=== PATIENT | female | born 1960 | race Two or more races ===

== ENCOUNTER 2021-06-08 11:36 | Inpatient (IN) | payer MEDICAID, OTHER ==
[~2021-06-08] VITALS: Ht 167.6 cm; Wt 80.6 kg
[2021-06-08 13:22] LABS: Basophils # (auto) 0.1 10 ^3/uL (0-0.2); Basophils % (auto) 0.8 % (0.0-2.0); Eosinophils # (auto) 0.2 10 ^3/uL (0-0.8); Eosinophils % (auto) 4.1 % (0.0-7.0); Hematocrit 32.2 % (36.0-46.0); Lymphocytes # (auto) 0.9 10 ^3/uL (0.4-5.4); Lymphocytes % (auto) 15.4 % (10.0-50.0); Mean Corpuscular Hgb Conc. 34.1 g/dL (32.0-36.0); Monocytes # (auto) 0.5 10 ^3/uL (0-1.3); Monocytes % (auto) 8.1 % (0.0-12.0); Neutrophils # (auto) 4.3 10 ^3/uL (1.6-8.6); Neutrophils % (auto) 71.6 % (37.0-80.0); Red Blood Cells 3.79 10^6/uL (4.0-5.20); Red Cell Distribution Width 14.4 % (11.8-14.3)
[2021-06-08 13:38] LABS: INR 1.03 (0.9-1.15)
[2021-06-08] MEDS ORDERED: HEPARIN DRIP/D5W 100UNITS/ML 250 ML IV SCH (13:45)
[2021-06-08] MEDS ORDERED: HEPARIN SODIUM (PORCINE) 5000 UNITS/ML 1ML VIAL IV ONE (13:45)
[2021-06-08 14:10] LABS: Calcium 9.3 mg/dL (8.5-10.1)
[2021-06-08 14:13] LABS: BUN/Creatinine Ratio 19.7; Bilirubin, Total 0.3 mg/dL (0.2-1.0); Total Protein 7.6 g/dL (6.4-8.2)
[2021-06-08] MEDS ORDERED: IOHEXOL 350 MG/ML 100ML IJ ONE ×2 (14:28→15:01)
[2021-06-08] MEDS: HEPARIN DRIP/D5W 100UNITS/ML 250 ML IV SCH (21:00)
[2021-06-08] MEDS ORDERED: MORPHINE SULFATE INJECTION 2 MG/ML SYRG IV PRN (22:00)
[2021-06-08] MEDS ORDERED: ACETAMINOPHEN 325 MG TAB PO PRN (22:00)
[2021-06-08] MEDS ORDERED: cloNIDine HCL 0.1 MG TAB PO PRN (22:00)
[2021-06-08] MEDS ORDERED: NITROGLYCERIN 0.4 MG SL TAB SL PRN (22:00)
[2021-06-08] MEDS ORDERED: ONDANSETRON HCL 4 MG/2 ML VIAL IV PRN (22:00)
[2021-06-08] MEDS ORDERED: TEMAZEPAM 15 MG CAP PO PRN (22:00)
[2021-06-08] MEDS: ATORVASTATIN 20 MG TAB PO SCH (22:18)
[2021-06-08] MEDS ORDERED: CLOPIDOGREL BISULFATE 75 MG TAB PO ONE (22:45)
[2021-06-08] MEDS: HYDROcodone-ACET 5/325MG TAB PO PRN (23:40)
[2021-06-08 23:43] LABS: INR 1.06 (0.9-1.15)
[2021-06-08 23:48] LABS: Partial Thromboplastin Time 88.3 sec (23.6-33.0)
[2021-06-09] VITALS (7 sets, daily range): BP systolic 109–170; BP diastolic 51–82
[2021-06-09] MEDS ORDERED: PNEUMOCOCCAL VACC POLYS 25 MCG/0.5 ML VIAL IM ONE (01:45)
[2021-06-09 05:58] LABS: Basophils # (auto) 0 10 ^3/uL (0-0.2); Basophils % (auto) 0.7 % (0.0-2.0); Eosinophils # (auto) 0.2 10 ^3/uL (0-0.8); Eosinophils % (auto) 4.7 % (0.0-7.0); Hematocrit 29.6 % (36.0-46.0); Hemoglobin 10.4 g/dL (12.2-16.2); Lymphocytes # (auto) 0.8 10 ^3/uL (0.4-5.4); Lymphocytes % (auto) 16.6 % (10.0-50.0); Mean Corpuscular Hemoglobin 29.7 pg (28.0-32.0); Mean Corpuscular Volume 84.8 fL (80.0-100.0); Monocytes # (auto) 0.5 10 ^3/uL (0-1.3); Monocytes % (auto) 10.1 % (0.0-12.0); Neutrophils # (auto) 3.2 10 ^3/uL (1.6-8.6); Neutrophils % (auto) 67.9 % (37.0-80.0); Nucleated Red Blood Cells % 0.1 %; Red Blood Cells 3.49 10^6/uL (4.0-5.20); Red Cell Distribution Width 14.3 % (11.8-14.3); White Blood Cell 4.8 10^3/uL (4.4-10.8)
[2021-06-09 06:03] LABS: INR 1.08 (0.9-1.15); Partial Thromboplastin Time 69.1 sec (23.6-33.0)
[2021-06-09 06:09] LABS: Albumin 2.7 g/dL (3.4-5.0); Calcium 8.8 mg/dL (8.5-10.1); Potassium 3.3 mmol/L (3.5-5.1)
[2021-06-09 06:13] LABS: BUN/Creatinine Ratio 18.9; Bilirubin, Total 0.6 mg/dL (0.2-1.0); Total Protein 6.8 g/dL (6.4-8.2)
[2021-06-09] MEDS: PANTOPRAZOLE 40 MG TAB PO SCH (09:22)
[2021-06-09] MEDS: LISINOPRIL 20 MG TAB PO SCH (09:23)
[2021-06-09] MEDS: HEPARIN DRIP/D5W 100UNITS/ML 250 ML IV SCH ×2 (09:53→10:13)
[2021-06-09 12:53] LABS: INR 1.09 (0.9-1.15); Partial Thromboplastin Time 39.3 sec (23.6-33.0)
[2021-06-09] MEDS: HYDROcodone-ACET 5/325MG TAB PO PRN (13:00)
[2021-06-09 19:34] LABS: INR 1.07 (0.9-1.15)
[2021-06-09 19:37] LABS: Partial Thromboplastin Time 72.6 sec (23.6-33.0)
[2021-06-09] MEDS: ATORVASTATIN 20 MG TAB PO SCH (22:13)
[2021-06-10 01:33] LABS: INR 1.1 (0.9-1.15)
[2021-06-10 01:40] LABS: Partial Thromboplastin Time 106.8 sec (23.6-33.0)
[2021-06-10] MEDS: HEPARIN DRIP/D5W 100UNITS/ML 250 ML IV SCH (04:07)
[2021-06-10 05:14] VITALS: BP 131/75
[2021-06-10 07:50] VITALS: BP 142/87
[2021-06-10 08:00] VITALS: BP 142/87
[2021-06-10 09:05] LABS: INR 1.08 (0.9-1.15)
[2021-06-10 09:12] LABS: Partial Thromboplastin Time 75.3 sec (23.6-33.0)
[2021-06-10] MEDS: LISINOPRIL 20 MG TAB PO SCH (10:35)
[2021-06-10] MEDS: PANTOPRAZOLE 40 MG TAB PO SCH (10:35)
[2021-06-10 12:35] VITALS: BP 125/64
[2021-06-10] MEDS ORDERED: IOHEXOL 300 MG/ML 100ML BOTTLE IJ ONE (14:11)
[2021-06-10] MEDS ORDERED: IOHEXOL 350 MG/ML 100ML IJ ONE (14:20)
[2021-06-10 14:33] LABS: INR 1.08 (0.9-1.15); Partial Thromboplastin Time 69.3 sec (23.6-33.0)
[2021-06-10 17:06] VITALS: BP 132/67
[2021-06-10 20:08] LABS: INR 1.1 (0.9-1.15)
[2021-06-10 20:21] LABS: Partial Thromboplastin Time 83.1 sec (23.6-33.0)
[2021-06-10] MEDS ORDERED: HEPARIN DRIP/D5W 100UNITS/ML 250 ML IV SCH (21:15)
[2021-06-10 22:00] VITALS: BP 137/69
[2021-06-10] MEDS: ATORVASTATIN 20 MG TAB PO SCH (22:13)
[2021-06-11 03:07] LABS: INR 1.08 (0.9-1.15)
[2021-06-11 03:25] LABS: Partial Thromboplastin Time 86.5 sec (23.6-33.0)
[2021-06-11 05:00] VITALS: BP 131/62
[2021-06-11] MEDS ORDERED: APIX5TAB PO ×2 (08:59)
[2021-06-11 09:00] VITALS: BP 124/56
[2021-06-11] MEDS: PANTOPRAZOLE 40 MG TAB PO SCH (09:02)
[2021-06-11] MEDS: LISINOPRIL 20 MG TAB PO SCH (09:02)
[2021-06-11 09:52] VITALS: BP 124/56
[2021-06-11 09:54] LABS: INR 1.06 (0.9-1.15); Partial Thromboplastin Time 54.7 sec (23.6-33.0)
[2021-06-11] MEDS ORDERED: APIXABAN 5 MG TAB PO SCH (10:00)
== END 2021-06-11 12:05 | disposition home or self-care (01) | DRG 197 ==
LOC: ER 11:36 → TELE 21:54 → TELE-CENTR 23:03
PROVIDERS: ADMIT Nurse Practitioner; ATTEND Family Medicine
DX: I82.422 Acute embolism and thrombosis of left iliac vein (principal); D68.59 Other primary thrombophilia; E27.8 Other specified disorders of adrenal gland; D64.9 Anemia, unspecified; E04.1 Nontoxic single thyroid nodule; E78.00 Pure hypercholesterolemia, unspecified; E78.5 Hyperlipidemia, unspecified; E87.6 Hypokalemia; I10 Essential (primary) hypertension; R59.0 Localized enlarged lymph nodes; R91.1 Solitary pulmonary nodule; Z20.822 Contact with and (suspected) exposure to COVID-19; Z28.21 Immunization not carried out because of patient refusal
CPT/HCPCS: 36415; 71045; 71275; 74177; 80053; 83880; 84439; 84443; 84484; 85025; 85610; 85730; 86850; 86900; 86901; 93005; 93971; 96365; 96376; G0378

== ENCOUNTER 2021-06-24 11:22 | Emergency (ER) | payer MEDICAID ==
[~2021-06-24] VITALS: Ht 167.6 cm; Wt 79.4 kg
[~2021-06-24 11:22] MED LIST: APIX5TAB PO
[2021-06-24 12:17] LABS: Basophils # (auto) 0.1 10 ^3/uL (0-0.2); Eosinophils # (auto) 0.1 10 ^3/uL (0-0.8); Lymphocytes # (auto) 0.7 10 ^3/uL (0.4-5.4); Monocytes # (auto) 0.7 10 ^3/uL (0-1.3)
[2021-06-24 12:18] LABS: Eosinophils % (auto) 0.7 % (0.0-7.0); Hematocrit 30.7 % (36.0-46.0); Lymphocytes % (auto) 7.8 % (10.0-50.0); Mean Corpuscular Hemoglobin 27.8 pg (28.0-32.0); Mean Corpuscular Hgb Conc. 33.3 g/dL (32.0-36.0); Mean Corpuscular Volume 83.5 fL (80.0-100.0); Monocytes % (auto) 8.2 % (0.0-12.0); Neutrophils % (auto) 82.3 % (37.0-80.0); Red Blood Cells 3.68 10^6/uL (4.0-5.20); Red Cell Distribution Width 14.6 % (11.8-14.3); White Blood Cell 8.4 10^3/uL (4.4-10.8)
[2021-06-24 12:22] LABS: Hemoglobin 10.2 g/dL (12.2-16.2)
[2021-06-24 12:31] LABS: INR 1.12 (0.9-1.15); Partial Thromboplastin Time 33.9 sec (23.6-33.0)
[2021-06-24 12:33] LABS: Albumin 2.6 g/dL (3.4-5.0); Calcium 9.2 mg/dL (8.5-10.1); Potassium 3.5 mmol/L (3.5-5.1)
[2021-06-24 12:36] LABS: BUN/Creatinine Ratio 11.4; Bilirubin, Total 0.4 mg/dL (0.2-1.0); Total Protein 7.9 g/dL (6.4-8.2)
[2021-06-24] MEDS ORDERED: FUROSEMIDE 20 MG TAB PO ONE (16:00)
[2021-06-24] MEDS ORDERED: FURO1TAB33 PO (17:53)
[2021-06-24] MEDS ORDERED: CEPH-509 PO (17:53)
[2021-06-24 20:03] VITALS: BP 172/67
== END 2021-06-24 20:06 | disposition home or self-care (01) ==
LOC: ER 11:22
DX: R22.42 Localized swelling, mass and lump, left lower limb (principal); E88.09 Other disorders of plasma-protein metabolism, not elsewhere classified; R19.09 Other intra-abdominal and pelvic swelling, mass and lump; I10 Essential (primary) hypertension; E78.5 Hyperlipidemia, unspecified; Z79.899 Other long term (current) drug therapy
CPT/HCPCS: 36415; 80053; 83880; 84484; 85025; 85610; 85730; 93005; 93971

== ENCOUNTER 2021-07-08 20:17 | Inpatient (IN) | payer MEDICAID ==
[~2021-07-08] VITALS: Ht 165.1 cm; Wt 76.8 kg
[~2021-07-08 20:17] MED LIST changes: +CEPH-509 PO; +FURO1TAB33 PO
[2021-07-08 23:44] LABS: Basophils # (auto) 0 10 ^3/uL (0-0.2); Eosinophils # (auto) 0.1 10 ^3/uL (0-0.8); Hemoglobin 9.2 g/dL (12.2-16.2); Lymphocytes # (auto) 0.8 10 ^3/uL (0.4-5.4); Monocytes # (auto) 0.6 10 ^3/uL (0-1.3); Neutrophils % (auto) 75.1 % (37.0-80.0)
[2021-07-08 23:46] LABS: Basophils % (auto) 0.7 % (0.0-2.0); Eosinophils % (auto) 1.5 % (0.0-7.0); Hematocrit 27.7 % (36.0-46.0); Lymphocytes % (auto) 12.8 % (10.0-50.0); Mean Corpuscular Hemoglobin 27.6 pg (28.0-32.0); Mean Corpuscular Hgb Conc. 33.3 g/dL (32.0-36.0); Monocytes % (auto) 9.9 % (0.0-12.0); Neutrophils # (auto) 4.4 10 ^3/uL (1.6-8.6); Red Blood Cells 3.34 10^6/uL (4.0-5.20); White Blood Cell 5.9 10^3/uL (4.4-10.8)
[2021-07-08 23:52] LABS: Albumin 2.5 g/dL (3.4-5.0); Calcium 8.9 mg/dL (8.5-10.1); Potassium 3.1 mmol/L (3.5-5.1)
[2021-07-08 23:54] LABS: BUN/Creatinine Ratio 14.8
[2021-07-08 23:57] LABS: Bilirubin, Total 0.4 mg/dL (0.2-1.0); Total Protein 7.4 g/dL (6.4-8.2)
[2021-07-09 07:28] LABS: Urine Bacteria NONE SEEN /hpf (None Seen); Urine Blood 1+ /uL (Negative); Urine Hyaline Cast FEW /lpf (0 - 2); Urine Mucus FEW (None Seen); Urine Specific Gravity 1.019 (1.001-1.035); Urine WBC 9 /hpf (0 - 5)
[2021-07-09] MEDS ORDERED: fentaNYL CITRATE 100 MCG/2 ML VL IV ONE (10:00)
[2021-07-09] MEDS ORDERED: MORPHINE SULFATE INJ 2 MG/ml SYRG IV PRN (11:45)
[2021-07-09] MEDS ORDERED: ONDANSETRON HCL 4 MG/2 ML VIAL IV PRN (11:45)
[2021-07-09] MEDS ORDERED: DOCUSATE SOD 100 MG CAP PO PRN (11:45)
[2021-07-09] MEDS ORDERED: hydrALAZINE HCL 20 MG/ML VL IV PRN (11:45)
[2021-07-09] MEDS ORDERED: ACETAMINOPHEN 325 MG TAB PO PRN (11:45)
[2021-07-09] MEDS ORDERED: NITROGLYCERIN 0.4 MG SL TAB SL PRN (11:45)
[2021-07-09] MEDS: POTASSIUM CHL 20MEQ/100ML 100 ML IV SCH ×2 (12:03→15:11)
[2021-07-09 12:34] LABS: INR 1.18 (0.9-1.15)
[2021-07-09 20:46] VITALS: BP 113/65
[2021-07-09 22:20] LABS: Magnesium 1.9 mg/dL (1.6-2.6); Potassium 3.8 mmol/L (3.5-5.1)
[2021-07-09] MEDS: HYDROcodone-ACET 5/325MG TAB PO PRN (23:19)
[2021-07-10 05:00] VITALS: BP 118/56
[2021-07-10 09:00] VITALS: BP 119/63
[2021-07-10] MEDS ORDERED: FUROSEMIDE 20 MG TAB PO SCH (10:00)
[2021-07-10] MEDS ORDERED: POTASSIUM CHL 20 Meq TABLET PO SCH (10:00)
[2021-07-10] MEDS: HYDROcodone-ACET 5/325MG TAB PO PRN ×2 (10:14→21:14)
[2021-07-10 13:00] VITALS: BP 141/75
[2021-07-10 17:00] VITALS: BP 129/67
[2021-07-10] MEDS ORDERED: cefTRIAXone 1GM/50ML D5W 50 ML IV ONE (19:00)
[2021-07-10 22:00] VITALS: BP 139/65
[2021-07-10 23:19] LABS: Eosinophils # (auto) 0.1 10 ^3/uL (0-0.8)
[2021-07-10 23:21] LABS: Basophils # (auto) 0.1 10 ^3/uL (0-0.2); Basophils % (auto) 1.4 % (0.0-2.0); Eosinophils % (auto) 1.2 % (0.0-7.0); Hematocrit 27.7 % (36.0-46.0); Hemoglobin 9.5 g/dL (12.2-16.2); Lymphocytes # (auto) 0.7 10 ^3/uL (0.4-5.4); Mean Corpuscular Hgb Conc. 34.2 g/dL (32.0-36.0); Mean Corpuscular Volume 82.1 fL (80.0-100.0); Monocytes # (auto) 0.5 10 ^3/uL (0-1.3); Monocytes % (auto) 6.8 % (0.0-12.0); Neutrophils # (auto) 5.9 10 ^3/uL (1.6-8.6); Neutrophils % (auto) 80.6 % (37.0-80.0); Red Blood Cells 3.37 10^6/uL (4.0-5.20); Red Cell Distribution Width 15.2 % (11.8-14.3); White Blood Cell 7.3 10^3/uL (4.4-10.8)
[2021-07-10 23:37] LABS: Potassium 4.2 mmol/L (3.5-5.1)
[2021-07-11] MEDS: HYDROcodone-ACET 5/325MG TAB PO PRN ×3 (03:44→21:56)
[2021-07-11 05:00] VITALS: BP 106/58
[2021-07-11 07:36] LABS: Basophils # (auto) 0 10 ^3/uL (0-0.2); Eosinophils # (auto) 0.1 10 ^3/uL (0-0.8)
[2021-07-11 07:38] LABS: Basophils % (auto) 0.6 % (0.0-2.0); Hematocrit 27.6 % (36.0-46.0); Hemoglobin 9.2 g/dL (12.2-16.2); Lymphocytes # (auto) 0.7 10 ^3/uL (0.4-5.4); Lymphocytes % (auto) 8.9 % (10.0-50.0); Mean Corpuscular Hemoglobin 27.5 pg (28.0-32.0); Mean Corpuscular Hgb Conc. 33.3 g/dL (32.0-36.0); Mean Corpuscular Volume 82.7 fL (80.0-100.0); Monocytes # (auto) 0.6 10 ^3/uL (0-1.3); Monocytes % (auto) 7.6 % (0.0-12.0); Neutrophils # (auto) 6.9 10 ^3/uL (1.6-8.6); Neutrophils % (auto) 81.9 % (37.0-80.0); Red Blood Cells 3.33 10^6/uL (4.0-5.20); Red Cell Distribution Width 15.1 % (11.8-14.3); White Blood Cell 8.4 10^3/uL (4.4-10.8)
[2021-07-11 07:43] LABS: BUN/Creatinine Ratio 18.2; Calcium 9.1 mg/dL (8.5-10.1); Potassium 4.2 mmol/L (3.5-5.1)
[2021-07-11 07:46] LABS: % Iron Saturation 10.4 % (15-50)
[2021-07-11 09:00] VITALS: BP 109/60
[2021-07-11 09:28] LABS: Ferritin 791.1 ng/mL (10-322)
[2021-07-11] MEDS: POTASSIUM CHL 10 Meq TABLET PO SCH (10:00)
[2021-07-11] MEDS: cefTRIAXone 1GM/50ML D5W 50 ML IV SCH (10:07)
[2021-07-11] MEDS: FUROSEMIDE 20 MG TAB PO SCH (10:23)
[2021-07-11 12:37] VITALS: BP 127/70
[2021-07-11] MEDS ORDERED: MIDAZOLAM HCL 2MG/2ML 2ml VIAL (1mg/ml) ONE (13:39)
[2021-07-11] MEDS ORDERED: fentaNYL CITRATE 100 MCG/2 ML VL ONE ×2 (13:39→14:23)
[2021-07-11] MEDS ORDERED: ONDANSETRON HCL 4 MG/2 ML VIAL ONE ×2 (13:40→14:54)
[2021-07-11] MEDS ORDERED: LIDOCAINE 2% (LOCAL ANESTH.) PF 5ml SDV ONE (13:40)
[2021-07-11] MEDS ORDERED: ROCURONIUM 10MG/ML 10ML VIAL IV ONE (13:45)
[2021-07-11] MEDS ORDERED: NEOSTIGMINE 1 MG/ML INJ (10mg/10ML VIAL) ONE (14:41)
[2021-07-11] MEDS ORDERED: ceFAZolin 1GM VL ONE (14:52)
[2021-07-11] MEDS ORDERED: ESMOLOL HCL IV ONE (14:53)
[2021-07-11] MEDS ORDERED: PROPOFOL 10 MG/ML 20 ML IV ONE (14:54)
[2021-07-11 17:26] VITALS: BP 105/71
[2021-07-11 22:00] VITALS: BP 133/66
[2021-07-12] MEDS: HYDROcodone-ACET 5/325MG TAB PO PRN ×5 (01:46→20:21)
[2021-07-12 05:00] VITALS: BP 112/65
[2021-07-12 05:49] LABS: Basophils # (auto) 0 10 ^3/uL (0-0.2); Basophils % (auto) 0.2 % (0.0-2.0); Eosinophils # (auto) 0 10 ^3/uL (0-0.8); Eosinophils % (auto) 0.4 % (0.0-7.0); Hematocrit 27.1 % (36.0-46.0); Hemoglobin 9.3 g/dL (12.2-16.2); Lymphocytes # (auto) 0.6 10 ^3/uL (0.4-5.4); Lymphocytes % (auto) 6.3 % (10.0-50.0); Mean Corpuscular Hemoglobin 28.4 pg (28.0-32.0); Mean Corpuscular Hgb Conc. 34.4 g/dL (32.0-36.0); Mean Corpuscular Volume 82.6 fL (80.0-100.0); Monocytes # (auto) 0.8 10 ^3/uL (0-1.3); Neutrophils # (auto) 8.8 10 ^3/uL (1.6-8.6); Neutrophils % (auto) 85.1 % (37.0-80.0); Red Blood Cells 3.28 10^6/uL (4.0-5.20); Red Cell Distribution Width 15.4 % (11.8-14.3); White Blood Cell 10.3 10^3/uL (4.4-10.8)
[2021-07-12 06:23] LABS: BUN/Creatinine Ratio 18.9
[2021-07-12 09:18] VITALS: BP 112/60
[2021-07-12] MEDS ORDERED: LEVO500T31 PO (09:21)
[2021-07-12] MEDS ORDERED: POTA-167 PO (09:21)
[2021-07-12] MEDS: POTASSIUM CHL 10 Meq TABLET PO SCH (11:26)
[2021-07-12] MEDS: FUROSEMIDE 20 MG TAB PO SCH (11:27)
[2021-07-12] MEDS: cefTRIAXone 1GM/50ML D5W 50 ML IV SCH (11:27)
[2021-07-12 14:50] VITALS: BP 127/63
[2021-07-12 17:00] VITALS: BP 134/66
[2021-07-12] MEDS: APIXABAN 2.5 MG TAB PO SCH (21:05)
[2021-07-12 22:00] VITALS: BP 107/55
[2021-07-13] MEDS: HYDROcodone-ACET 5/325MG TAB PO PRN ×2 (02:49→09:06)
[2021-07-13 05:00] VITALS: BP 108/55
[2021-07-13 09:00] VITALS: BP 124/62
[2021-07-13] MEDS: POTASSIUM CHL 10 Meq TABLET PO SCH (09:05)
[2021-07-13] MEDS: cefTRIAXone 1GM/50ML D5W 50 ML IV SCH (09:05)
[2021-07-13] MEDS: APIXABAN 2.5 MG TAB PO SCH (09:05)
[2021-07-13] MEDS: FUROSEMIDE 20 MG TAB PO SCH (09:06)
[2021-07-13] MEDS ORDERED: APIX5TAB PO (11:22)
== END 2021-07-13 12:24 | DRG 308 ==
LOC: ER 20:17 → TELE-WESTW 20:25 → TELE 07-09 11:34 → TELE-WESTW 07-09 20:30
PROVIDERS: ADMIT Internal Medicine; ATTEND Internal Medicine
PROC: 0QS704Z Reposition Left Upper Femur with Internal Fixation Device, Open Approach (ICD-10-PCS; principal; 2021-07-11 13:38)
PROC: 07BJ3ZX Excision of Left Inguinal Lymphatic, Percutaneous Approach, Diagnostic (ICD-10-PCS; 2021-07-12)
DX: S72.092A Other fracture of head and neck of left femur, initial encounter for closed fracture (principal); E44.1 Mild protein-calorie malnutrition; E27.8 Other specified disorders of adrenal gland; D64.9 Anemia, unspecified; E87.6 Hypokalemia; R59.0 Localized enlarged lymph nodes; N39.0 Urinary tract infection, site not specified; E04.1 Nontoxic single thyroid nodule; E78.5 Hyperlipidemia, unspecified; E66.9 Obesity, unspecified; Z20.822 Contact with and (suspected) exposure to COVID-19; W18.39XA Other fall on same level, initial encounter; I10 Essential (primary) hypertension; M16.12 Unilateral primary osteoarthritis, left hip; Z75.1 Person awaiting admission to adequate facility elsewhere; Z86.718 Personal history of other venous thrombosis and embolism; Z68.29 Body mass index [BMI] 29.0-29.9, adult; Y93.89 Activity, other specified; Y92.89 Other specified places as the place of occurrence of the external cause; Y99.8 Other external cause status
CPT/HCPCS: 36415; 71045; 72170; 73700; 76536; 76942; 80048; 80053; 81001; 82607; 82728; 83540; 83550; 83615; 83735; 83880; 84132; 84484; 85025; 85045; 85610; 86850; 86880; 86900; 86901; 87040; 87081; 87086; 93005; 93306; 93926; 93971; 97110; 97116; 97163; 97530; A4565; G0378; J0690; J0696; J2001; J2250; J2405; J2704; J3480